=== PATIENT | male | born 1950 | race Asian ===

== ENCOUNTER 2019-02-10 06:45 | Day surgery (SDC) | payer BC, OTHER ==
[~2019-02-10] VITALS: Ht 165.1 cm; Wt 82.5 kg
[2019-02-10 07:40] VITALS: Ht 165.1 cm; Wt 82.5 kg
[2019-02-10 07:48] VITALS: BP 165/78; PULSE 60; RESP 21
[2019-02-10] MEDS ORDERED: TAMSULOSIN (07:50)
[2019-02-10] MEDS ORDERED: OMEPRAZOLE (07:50)
[2019-02-10] MEDS ORDERED: [UNRECOGNIZED DRUG - OTHER] (07:50)
[2019-02-10] MEDS ORDERED: LOSARTAN (07:50)
[2019-02-10] MEDS ORDERED: GABAPENTIN (07:50)
[2019-02-10] MEDS ORDERED: METOPROLOL (07:50)
[2019-02-10] MEDS ORDERED: METFORMIN (07:50)
[2019-02-10] MEDS ORDERED: ASPIRIN (07:50)
[2019-02-10] MEDS ORDERED: FINASTERIDE (07:50)
[2019-02-10] MEDS ORDERED: SIMVASTATIN (07:50)
--- NOTE | 2019-02-10 08:26 | PREAC ---
Date/Time of Note Date/Time of Note DATE: 02/10/19 TIME: 08:25 Anesthesia Eval and Record Evaluation Time Pre-Procedure Interview DATE: 02/10/19 TIME: 08:25 Age 68 Sex male NPO: 8 hrs Preoperative diagnosis screening Planned procedure colonoscopy Past Medical History Past Medical History: Includes Cardio: HTN GI: GERD, Obesity Surgery & Anesthesia Issues No known issue Meds Anticoagulation: No Beta Karthikeyan within 24 hr: No Reason Beta Karthikeyan not given: Pt. not on B-Karthikeyan Reported Medications [Gabapentin] No Conflict Check 02/10/19 [Metoprolol] No Conflict Check 02/10/19 [Tamsulosin] No Conflict Check 02/10/19 [Simvastatin] No Conflict Check 02/10/19 [Finasteride] No Conflict Check 02/10/19 [Losartan] No Conflict Check 02/10/19 [Logimax] No Conflict Check 02/10/19 [Aspirin] No Conflict Check 02/10/19 [Metformin] No Conflict Check 02/10/19 [Omeprazole] No Conflict Check 02/10/19 Meds reviewed: Yes Allergies Uncoded Allergies: ARCOXIA (Allergy, Unknown, 02/10/19) BLACK SPOTTING ON SKIN Allergies Reviewed: Yes Labs/Studies Labs Reviewed: Reviewed by anesthesiologist test: N/A Pre-procedure Exam Last vitals Vital Signs Date Temp Pulse Resp B/P (MAP) Pulse Ox O2 O2 Flow FiO2 Time Delivery Rate 02/10/19 97.5 60 21 165/78 99 Room Air 07:48 (107) Airway: Adequate mouth opening, Adequate thyromental dist Mallampati: Mallampati II Teeth: Normal Lung: Normal Heart: Normal ASA Physical Status ASA physical status: 3 Emergency: None Planned Anesthetic General/MAC: Mask Pre-operative Attestations Prior to commencing anesthesia and surgery, the patient was re-evaluated, there was verification of: *The patient's identity *The results of appropriate recent lab work and preoperative vital signs *The above evaluation not changing prior to induction *Anesthetic plan, risk benefits, alternative and complications discussed with patient/family; questions answered; patient/family understands, accepts and wishes to proceed. FRANKIE BOYKIN February 10, 2019 08:26
[2019-02-10] MEDS ORDERED: LIDOCAINE 100 MG SYRINGE ONE (08:30)
[2019-02-10] MEDS ORDERED: PROPOFOL 40 ML ONE (08:30)
[2019-02-10 09:25] VITALS: BP 136/85; PULSE 63; RESP 20
--- NOTE | 2019-02-12 10:25 | PAC ---
Date/Time of Note Date/Time of Note DATE: 02/12/19 TIME: 10:25 Post-Anesthesia Notes Post-Anesthesia Note Last documented vital signs Vital Signs Date Temp Pulse Resp B/P (MAP) Pulse Ox O2 O2 Flow FiO2 Time Delivery Rate 02/10/19 63 20 136/85 98 Room Air 09:25 (102) 02/10/19 97.5 07:48 Activity: WNL Respiratory function: WNL Cardiovascular function: WNL Mental status: Baseline Pain reasonably controlled: Yes Hydration appropriate: Yes Nausea/Vomiting absent: Yes FRANKIE BOYKIN February 12, 2019 10:25
== END 2019-02-10 11:30 | disposition home or self-care (01) ==
LOC: GIL 06:45
PROVIDERS: ATTEND Internal Medicine Gastroenterology
DX: Z12.11 Encounter for screening for malignant neoplasm of colon (principal); K64.4 Residual hemorrhoidal skin tags; K64.8 Other hemorrhoids; K57.30 Diverticulosis of large intestine without perforation or abscess without bleeding; I10 Essential (primary) hypertension; N40.0 Benign prostatic hyperplasia without lower urinary tract symptoms; Z87.891 Personal history of nicotine dependence; Z79.82 Long term (current) use of aspirin
CPT/HCPCS: 45378; 82962; J2001; Z7610